=== PATIENT | female | born 1975 | race Two or more races ===

== ENCOUNTER 2025-03-17 07:15 | Outpatient (CLI) | payer MEDICAID ==
[~2025-03-17] VITALS: Ht 160 cm; Wt 61.7 kg
[~2025-03-17 07:15] MED LIST: ANAS1TAB7 PO; VENL1TAB97 PO
[2025-03-17] MEDS: LIDOCAINE 2%HCL (LOCAL ANESTH.) INJ 20ML MDV ONE (08:35)
[2025-03-17] MEDS: fentaNYL CITRATE 100 MCG/2 ML VL ONE (08:35)
[2025-03-17] MEDS: MIDAZOLAM HCL 2MG/2ML 2ml VIAL (1mg/ml) ONE (08:35)
[2025-03-17] MEDS: LIDOCAINE W/ EPINEPHRINE 2% INJ 20ML VIAL ONE (09:06)
[2025-03-17 09:30] VITALS: BP 118/67; PULSE 68; RESP 22; O2SAT 96
[2025-03-17 09:45] VITALS: BP 119/62; PULSE 69; RESP 21; O2SAT 90
[2025-03-17 10:00] VITALS: BP 108/72; PULSE 73; RESP 16; O2SAT 91
[2025-03-17 10:15] VITALS: BP 108/72; PULSE 65; RESP 22; O2SAT 90
--- NOTE | 2025-03-17 12:17 | DVH ---
DATE: PROCEDURE: PORT removal HISTORY: 49 Female with needing port removal DOCUMENTATION: Informed consent was obtained and a procedural time out was performed. SEDATION: Moderate sedation was utilized during the procedure. The patient received benzodiazepines a nd opioids, the dosing of which was documented in the patient s permanent medical record. Pre-sedatio n history and evaluation revealed no contraindications to sedation. The patient s level of consciousn ess and physiologic status was monitored continuously by the physician and nursing staff throughout t he procedure. Total intra-service moderate sedation time was 60 minutes. Moderate sedation was admini stered by interventional radiology nursing staff under the direct supervision of Dr. Almonte. Adequate analgesia and anxiolysis was obtained using intermittent, titrated dosages of medications with const ant monitoring of patient`s vital signs and telemetry. Total face to face sedation time: 60 minutes. [ single chest x-ray obtained TECHNIQUE: Following standard prep an incision was made over the indwelling port, the port was then f juana from the subcutaneous tissues and removed. The subcutaneous tissues were closed with both 2-0 a nd 4-0 Vicryl sutures. Procedural physician complied with all CLIP criteria, including preprocedural hand hygiene and use of maximum sterile barriers including hat, gown, sterile gloves, mask, and head to toe drape. The neck and chest were prepped with chlorhexidine solution and draped in the usual sterile fashion. The prep solution was allowed to dry prior to puncture. FINDINGS: Chest port removed as above IMPRESSION: 1. Chest port removed as above
== END 2025-03-17 17:00 | disposition home or self-care (01) ==
LOC: CATH 07:15
PROVIDERS: ATTEND Radiology Diagnostic Radiology
DX: Z45.2 Encounter for adjustment and management of vascular access device (principal); F17.210 Nicotine dependence, cigarettes, uncomplicated; Z79.899 Other long term (current) drug therapy; Z90.89 Acquired absence of other organs; Z80.3 Family history of malignant neoplasm of breast; Z80.1 Family history of malignant neoplasm of trachea, bronchus and lung
CPT/HCPCS: 36590; 71045; J2250; J3010; J7030; 99152; 99153